=== PATIENT | female | born 1940 | race Two or more races ===

== ENCOUNTER 2025-08-26 18:40 | Emergency (ER) | payer OTHER ==
[~2025-08-26] VITALS: Ht 162.6 cm; Wt 95.3 kg
[2025-08-26] MEDS ORDERED: TOUJEO MAX300 UNIT/1 (19:49)
[2025-08-26] MEDS ORDERED: LIPITOR40 M1 (19:49)
[2025-08-26] MEDS ORDERED: XARELTO10 MG (19:49)
[2025-08-26] MEDS ORDERED: LEVO-T75 MCG (19:49)
[2025-08-26] MEDS ORDERED: COZAAR100 MG (19:49)
[2025-08-26] MEDS ORDERED: MONTELUKAST SOD10 MG (19:49)
[2025-08-26] MEDS ORDERED: AMLODIPINE-OLM1 EAC2 (19:49)
[2025-08-26] MEDS ORDERED: CYCLOBENZAPRINE HCL 5 MG TABLET PO ONE (20:45)
[2025-08-26] MEDS ORDERED: FLUCONAZOLE 150 MG TABLET PO ONE (20:45)
[2025-08-26] MEDS ORDERED: DEXAMETHASONE SODIUM PHOSPHATE 4 MG/ML VIAL IM ONE (20:45)
[2025-08-26] MEDS ORDERED: CEFTRIAXONE SODIUM 1,000 MG VIAL IM ONE (20:45)
[2025-08-26 23:51] LABS: URINE APPEARANCE Clear; URINE BACTERIA 333.9 uL (0.0-1933); URINE BILIRRUBIN Negative (NEGATIVE); URINE BLOOD Negative; URINE COLOR Yellow; URINE EPITHELIAL CELLS 17.3 uL (0.0-38.8); URINE GLUCOSE Negative (NEGATIVE); URINE KETONE Negative (NEGATIVE); URINE LEUKOCYTE Moderate; URINE NITRATE Negative; URINE PROTEIN Trace (NEGATIVE); URINE RBC 38.3 uL (0.0-20.8); URINE UROBILINOGEN 0.2 E.U./dl; URINE WBC 149.3 uL (0.0-23.2)
[2025-08-27 00:20] LABS: ALT/SGPT 29.0 U/L (12-78); AST/SGOT 16.0 U/L (15-37); BILIRUBIN TOTAL 0.51 mg/dL (0.3-1.2); BUN CREA RATIO 28.0 (7.0-25.0); CREATININE SERUM 0.81 mg/dL (0.55-1.02); GFR 66.88; GLOBULINA 4.7 G/DL (2.4-3.5); GLUCOSE FASTING 183.0 mg/dL (65-100); OSMOLALITY SERUM 288.0 MOSM/KG (275-295)
[2025-08-27] MEDS ORDERED: 0.9 % SODIUM CHLORIDE 1,000 ML IV STA (00:41)
[2025-08-27 00:49] LABS: TYPE CELLS SQUAMOUS; URINE CAST 0.28 uL (0.0-1.40); URINE MUCUS NEGATIVE
[2025-08-27 01:48] LABS: BASO % 1.2 % (0.1-1.2); EOS # 0.28 (0.04-0.54); EOS % 4.9 % (0.7-7.0); LYMPH # 2.01 (1.18-3.74); LYMPH % 35.3 % (19.3-53.1); MEAN PLATELET VOLUME 12.40 fl (9.4-12.4); MONO # 0.93 (0.24-0.82); NEUT # 2.40 (1.56-6.13); NEUT % 42.1 % (34.0-71.1); RED CELL DISTRIBUTION WIDTH 14.5 % (11.6-14.4)
[2025-08-27 02:07] LABS: MONO % 16.3 % (4.7-12.5)
[2025-08-27] MEDS ORDERED: 3-DAY VAGINAL C21 GM VAG (02:36)
[2025-08-27] MEDS ORDERED: CIPRO500 MG PO (02:36)
== END 2025-08-27 03:04 | disposition home or self-care (01) ==
LOC: ER 18:41
PROVIDERS: General Practice
DX: N39.0 Urinary tract infection, site not specified (principal); R39.851 Costovertebral (angle) tenderness, right side; I10 Essential (primary) hypertension; E03.8 Other specified hypothyroidism; E78.00 Pure hypercholesterolemia, unspecified; E11.9 Type 2 diabetes mellitus without complications; Z79.4 Long term (current) use of insulin
CPT/HCPCS: 36415; 74176; 96365; 96372; 99284; J0696; J1100; J7040